=== PATIENT | female | born 1945 | race Caucasian/White ===

== ENCOUNTER 2025-07-11 01:12 | Outpatient (CLI) | payer MEDICARE, SELFPAY ==
--- NOTE | 2025-07-11 06:45 | DI.RAD_ITS ---
Exam(s) XR FOOT RT COMPLETE EXAM: XR FOOT RT COMPLETE CLINICAL HISTORY: Right foot pain,M79.671. TECHNIQUE: 2D digital imaging was performed of the right foot. Three images were obtained. AP, oblique and lateral views were obtained. COMPARISON: CR XR RIGHT FOOT ROUTINE from 04/06/2023 FINDINGS: BONES: No acute fracture is present. No bony destructive lesion is seen. There is a small enthesophyte at the posterior calcaneus. JOINTS: No dislocation present. There is a hallux valgus deformity. There is overlapping of the 1st and 2nd toes. There are hammertoe deformities present of the 2nd through 4th toes. There is joint space narrowing of the 1st MTP joint. SOFT TISSUE: Normal. IMPRESSION: Hallux valgus deformity and degenerative changes at the 1st MTP joint. DATA REPOSITORY: RADIATION DOSE DELIVERED:
== END 2025-07-11 01:32 ==
PROVIDERS: PCP Family Medicine; Visit Provider Podiatrist
DX: M19.071 Primary osteoarthritis, right ankle and foot (principal); M20.21 Hallux rigidus, right foot; M21.611 Bunion of right foot; M20.41 Other hammer toe(s) (acquired), right foot; L60.0 Ingrowing nail; M79.671 Pain in right foot; M79.672 Pain in left foot
CPT/HCPCS: 99204; 73630